=== PATIENT | female | born 1960 | race Caucasian/White ===

== ENCOUNTER 2022-12-18 06:18 | Emergency (ER) | payer OTHER, MEDICARE, SELFPAY ==
[2022-12-18] VITALS (23 sets, daily range): BP systolic 93–122; BP diastolic 52–76; PULSE 51–67; RESP 13–30; TEMP 37.2; O2SAT 92–98; BMI 39.8
--- NOTE | 2022-12-18 06:31 | DI.RAD.S_ITS ---
PROCEDURE: XR CHEST 1V INDICATIONS: n/v/d, LLQ pain, syncope, vo TECHNIQUE: One view of the chest was acquired. COMPARISON: None. FINDINGS: Surgical changes and devices: None. Lungs and pleura: Lungs are clear. No pleural effusions or pneumothorax. Mediastinum: Mediastinal contours appear normal. Heart size is normal. Bones and chest wall: No suspicious bony lesions. Overlying soft tissues appear unremarkable. IMPRESSION: No evidence acute pulmonary process. Comment: Final report is concordant with preliminary interpretation provided by [facility]. Dictated by: Nigel Villarreal M.D. on 12/18/2022 at 8:23 Approved by: Nigel Villarreal M.D. on 12/18/2022 at 8:24
[2022-12-18] MEDS: MORPHINE 4 MG/ML INJ IV (06:49)
[2022-12-18] MEDS: SODIUM CHLORIDE 0.9% 1,000 ML 150 ML IV (06:49)
--- NOTE | 2022-12-18 06:49 | ED.ABDPAIN ---
HPI - Abdominal Pain General Chief Complaint: Abdominal Pain Stated Complaint: n/v and abd pain Time Seen by Provider: 12/18/22 06:29 Source: patient and EMS Mode of arrival: EMS History of Present Illness HPI narrative: 62-year-old female nonsmoker presents with 4 days of nausea, vomiting, diarrhea and left lower quadrant pain. Her pain is relatively persistent and stays in her left lower quadrant, she denies any obvious radiation of her pain. It seems to be worse when she moves and improves with rest. She is had a poor appetite and has become increasingly fatigued. This morning she was having a bowel movement and upon standing had a syncopal episode. She denies any injury as a consequence of her fall. After which she called EMS for transport. She was given a L of fluid in route. Additionally she has some mild headache. She denies any fever. She denies recent travel, bad food. She does have remote history of complicated diverticulitis resulting in colectomy and prolonged use of TPN. She had her reanastomosis a few years ago. Related Data Previous Rx's Medication Instructions Recorded cephalexin 500 mg capsule 500 mg PO Q6H 7 days #28 caps 12/18/22 ondansetron 4 mg disintegrating 4 mg PO TID-QID PRN nausea and 12/18/22 tablet vomiting #10 tabs Allergies Allergy/AdvReac Type Severity Reaction Status Date / Time No Known Drug Allergies Allergy Verified 12/18/22 10:39 Review of Systems Review of Systems Narrative: GENERAL: See HPI HEENT: Denies sinus pain, ear pain, sore throat, difficulty swallowing, dizziness. RESPIRATORY: Denies dyspnea, cough, wheezing, hemoptysis, sputum. CARDIOVASCULAR: Denies chest pain, palpitations, orthopnea, edema, GASTROINTESTINAL: See HPI : Denies dysuria, frequency, incontinence, hematuria, urinary retention. MUSCULOSKELETAL: denies weakness, joint pain, or bony pain SKIN: Denies rash, skin lesions, or other NEUROLOGIC: See HPI PSYCHIATRIC: No concerning psychosocial issues. 12 point review of systems is negative except for those stated above Patient History Social History (System 12/18/22 @ 10:39 by Marsha Morocho) Smoking Status: Never smoker Smoking Status: Never smoker Substance Use Type: does not use Exam Narrative Exam Narrative: GENERAL: [62] year old patient appears stated age. Well-developed patient, in mild distress. GCS 15 HEAD: Atraumatic. Normocephalic. No contusion, abrasion or evidence of depressed skull fracture EYES: Pupils equal round and reactive. Extraocular motions intact. No scleral icterus. No injection or drainage. ENT: Nose without bleeding, purulent drainage. Throat without erythema, tonsillar hypertrophy or exudate. Airway patent. NECK: Trachea midline. Non tender, no meningeal sign CARDIOVASCULAR: Regular rate and rhythm without murmurs, gallops, or rubs. RESPIRATORY: Clear to auscultation. Breath sounds equal bilaterally. No wheezes, rales, or rhonchi. GASTROINTESTINAL: Abdomen soft, tender in the left lower quadrant EXTREMITIES: No edema or joint tenderness. BACK: Nontender without deformity or crepitance. No flank tenderness. NEURO: AOx3. SKIN: No rash or erythema of visible areas Initial Vital Signs Initial Vital Signs: Vital Signs Temperature 99 F 12/18/22 06:20 Pulse Rate 65 12/18/22 06:20 Respiratory Rate 16 12/18/22 06:20 Blood Pressure 122/65 12/18/22 06:20 Pulse Oximetry 96 12/18/22 06:20 Oxygen Delivery Method Room Air 12/18/22 06:20 Course Orders Ordered: ED Orders 12/18/22 06:30 EKG-12 Lead Stat 12/18/22 06:31 Chest [XR chest 1V] Stat 12/18/22 06:51 BNP [NT-proBNP (BNP-Adult 18+)] Stat COVID19 -Nasal RAPID Stat Complete Blood Count AUTO DIFF Stat Comprehensive Metabolic Panel Stat Lactate (Lactic Acid) Stat Lipase Stat Troponin & CK Cardiac Panel Stat 12/18/22 07:02 CT abdomen pelvis w con Stat 12/18/22 08:13 Urine Culture Stat Urine Microscopic Stat Discontinued Medications Sodium Chloride (Normal Saline 0.9%) 1,000 mls @ 150 mls/hr IV CONT ТАТЬЯНА Last Infusion: 12/18/22 07:18 Dose: 0 mls/hr Documented By: Infusion: 12/18/22 07:15 Dose: 0 mls/hr Documented By: Infusion: 12/18/22 07:11 Dose: 0 mls/hr Documented By: Admin: 12/18/22 06:49 Dose: 150 mls/hr Documented By: SB Acetaminophen (Ofirmev) 1,000 mg in 100 mls @ 400 mls/hr IV NOW ONE Stop: 12/18/22 07:15 Last Infusion: 12/18/22 07:46 Dose: 0 mls/hr Documented By: Admin: 12/18/22 07:24 Dose: 400 mls/hr Documented By: VINCE Sodium Chloride (Normal Saline 0.9%) 1,000 mls @ 1,000 mls/hr IV BOLUS ONE Stop: 12/18/22 08:11 Last Infusion: 12/18/22 07:56 Dose: 0 mls/hr Documented By: Admin: 12/18/22 07:13 Dose: 1,000 mls/hr Documented By: COLTON Ceftriaxone Sodium 2,000 mg/ (Sodium Chloride) 100 mls @ 200 mls/hr IV NOW ONE Stop: 12/18/22 09:07 Last Infusion: 12/18/22 09:53 Dose: 0 mls/hr Documented By: Admin: 12/18/22 09:17 Dose: 200 mls/hr Documented By: VINCE Sodium Chloride (Normal Saline 0.9%) 1,000 mls @ 1,000 mls/hr IV BOLUS ONE Stop: 12/18/22 11:54 Last Infusion: 12/18/22 12:38 Dose: 0 mls/hr Documented By: Admin: 12/18/22 11:05 Dose: 1,000 mls/hr Documented By: VINCE Ketorolac Tromethamine (Ketorolac 30 Mg/Ml Vial) 15 mg IV NOW ONE Stop: 12/18/22 11:37 Last Admin: 12/18/22 11:40 Dose: 15 mg Documented By: VINCE Morphine Sulfate (Morphine 4 Mg/Ml Inj) 4 mg IV NOW ONE Stop: 12/18/22 06:30 Last Admin: 12/18/22 06:49 Dose: 4 mg Documented By: COLTON Vital Signs Vital signs: Vital Signs - 8 hr 12/18/22 06:20 12/18/22 06:57 12/18/22 07:00 Temperature 99 F Pulse Rate 65 63 Pulse Rate [Orthostatic Lying] Pulse Rate [Orthostatic Sitting] Pulse Rate [Orthostatic Standing] Respiratory Rate 16 Blood Pressure 122/65 109/58 L Blood Pressure [Orthostatic Lying] Blood Pressure [Orthostatic Sitting] Blood Pressure [Orthostatic Standing] Pulse Oximetry 96 94 Oxygen Delivery Method Room Air 12/18/22 07:00 12/18/22 07:30 12/18/22 07:30 Temperature Pulse Rate 62 56 L Pulse Rate [Orthostatic Lying] Pulse Rate [Orthostatic Sitting] Pulse Rate [Orthostatic Standing] Respiratory Rate 15 Blood Pressure 108/63 Blood Pressure [Orthostatic Lying] Blood Pressure [Orthostatic Sitting] Blood Pressure [Orthostatic Standing] Pulse Oximetry 94 93 Oxygen Delivery Method 12/18/22 08:11 12/18/22 08:12 12/18/22 08:12 Temperature Pulse Rate 59 L 58 L Pulse Rate [Orthostatic Lying] Pulse Rate [Orthostatic Sitting] Pulse Rate [Orthostatic Standing] Respiratory Rate 30 H 21 Blood Pressure 94/76 Blood Pressure [Orthostatic Lying] Blood Pressure [Orthostatic Sitting] Blood Pressure [Orthostatic Standing] Pulse Oximetry 95 96 Oxygen Delivery Method 12/18/22 08:30 12/18/22 08:31 12/18/22 08:31 Temperature Pulse Rate 53 L 53 L Pulse Rate [Orthostatic Lying] Pulse Rate [Orthostatic Sitting] Pulse Rate [Orthostatic Standing] Respiratory Rate 16 15 Blood Pressure 93/52 L Blood Pressure [Orthostatic Lying] Blood Pressure [Orthostatic Sitting] Blood Pressure [Orthostatic Standing] Pulse Oximetry 94 92 Oxygen Delivery Method 12/18/22 09:00 12/18/22 09:02 12/18/22 09:07 Temperature Pulse Rate 59 L 55 L Pulse Rate [Orthostatic Lying] Pulse Rate [Orthostatic Sitting] Pulse Rate [Orthostatic Standing] Respiratory Rate 24 20 Blood Pressure 105/64 Blood Pressure [Orthostatic Lying] Blood Pressure [Orthostatic Sitting] Blood Pressure [Orthostatic Standing] Pulse Oximetry 94 92 Oxygen Delivery Method 12/18/22 09:07 12/18/22 10:28 12/18/22 09:30 Temperature Pulse Rate 54 L Pulse Rate [Orthostatic Lying] 59 L Pulse Rate [Orthostatic Sitting] 53 L Pulse Rate [Orthostatic Standing] 66 Respiratory Rate 21 Blood Pressure 112/67 Blood Pressure [Orthostatic Lying] 109/63 Blood Pressure [Orthostatic Sitting] 94/60 Blood Pressure [Orthostatic Standing] 98/66 Pulse Oximetry 94 Oxygen Delivery Method 12/18/22 10:00 12/18/22 10:00 12/18/22 10:22 Temperature Pulse Rate 51 L Pulse Rate [Orthostatic Lying] Pulse Rate [Orthostatic Sitting] Pulse Rate [Orthostatic Standing] Respiratory Rate 13 Blood Pressure 105/63 109/63 Blood Pressure [Orthostatic Lying] Blood Pressure [Orthostatic Sitting] Blood Pressure [Orthostatic Standing] Pulse Oximetry 92 Oxygen Delivery Method 12/18/22 10:22 12/18/22 10:24 12/18/22 10:24 Temperature Pulse Rate 55 L 53 L Pulse Rate [Orthostatic Lying] Pulse Rate [Orthostatic Sitting] Pulse Rate [Orthostatic Standing] Respiratory Rate 15 14 Blood Pressure 94/60 Blood Pressure [Orthostatic Lying] Blood Pressure [Orthostatic Sitting] Blood Pressure [Orthostatic Standing] Pulse Oximetry 93 95 Oxygen Delivery Method 12/18/22 10:26 12/18/22 10:26 12/18/22 10:30 Temperature Pulse Rate 67 53 L Pulse Rate [Orthostatic Lying] Pulse Rate [Orthostatic Sitting] Pulse Rate [Orthostatic Standing] Respiratory Rate 29 H 14 Blood Pressure 98/66 Blood Pressure [Orthostatic Lying] Blood Pressure [Orthostatic Sitting] Blood Pressure [Orthostatic Standing] Pulse Oximetry 93 94 Oxygen Delivery Method 12/18/22 10:40 12/18/22 10:40 12/18/22 11:00 Temperature Pulse Rate 59 L Pulse Rate [Orthostatic Lying] Pulse Rate [Orthostatic Sitting] Pulse Rate [Orthostatic Standing] Respiratory Rate 18 Blood Pressure 98/65 97/59 L Blood Pressure [Orthostatic Lying] Blood Pressure [Orthostatic Sitting] Blood Pressure [Orthostatic Standing] Pulse Oximetry 96 Oxygen Delivery Method 12/18/22 11:00 12/18/22 11:30 12/18/22 11:30 Temperature Pulse Rate 51 L 53 L Pulse Rate [Orthostatic Lying] Pulse Rate [Orthostatic Sitting] Pulse Rate [Orthostatic Standing] Respiratory Rate 18 17 Blood Pressure 108/55 L Blood Pressure [Orthostatic Lying] Blood Pressure [Orthostatic Sitting] Blood Pressure [Orthostatic Standing] Pulse Oximetry 96 97 Oxygen Delivery Method 12/18/22 12:00 12/18/22 12:00 12/18/22 12:30 Temperature Pulse Rate 58 L Pulse Rate [Orthostatic Lying] Pulse Rate [Orthostatic Sitting] Pulse Rate [Orthostatic Standing] Respiratory Rate 21 Blood Pressure 110/65 103/58 L Blood Pressure [Orthostatic Lying] Blood Pressure [Orthostatic Sitting] Blood Pressure [Orthostatic Standing] Pulse Oximetry 98 Oxygen Delivery Method 12/18/22 12:30 Temperature Pulse Rate 55 L Pulse Rate [Orthostatic Lying] Pulse Rate [Orthostatic Sitting] Pulse Rate [Orthostatic Standing] Respiratory Rate 18 Blood Pressure Blood Pressure [Orthostatic Lying] Blood Pressure [Orthostatic Sitting] Blood Pressure [Orthostatic Standing] Pulse Oximetry 97 Oxygen Delivery Method MDM - Abdominal Pain Lab Data 12/18/22 06:51 12/18/22 06:51 Labs: Lab Results 12/18/22 12/18/22 12/18/22 Range/Units 06:51 06:51 06:51 WBC 6.9 (4.5-11.0) X10^3/uL RBC 4.72 (4.0-5.2) X10^6/uL Hgb 13.2 (12.0-16.0) g/dL Hct 38.6 (36-46) % MCV 81.8 (80-100) fL MCH 27.9 (26-34) PG MCHC 34.1 (30-36) % RDW 14.6 (11.6-14.8) % Plt Count 104 L (150-400) X10^3/uL Neut % (Auto) 84.9 H (50-75) % Lymph % (Auto) 4.4 L (25-40) % [place] % (Auto) 10.6 (3-14) % Eos % (Auto) 0.0 L (2-4) % Baso % (Auto) 0.1 (0-2) % Neut # (Auto) 5900 (9466-9242) /uL Lymph # (Auto) 300 L (5282-9786) /uL [place] # (Auto) 700 (0-900) /uL Eos # (Auto) 0 (0-450) /uL Baso # (Auto) 0 (0-100) /uL Sodium 131 L (137-145) mmol/L Potassium 3.6 (3.4-5.1) mmol/L Chloride 100 (98-107) mmol/L Carbon Dioxide 26 (22-32) mmol/L BUN 15 (7-17) mg/dL Creatinine 0.67 (0.52-1.04) mg/dL Estimated GFR > 60 (>60) mL/min BUN/Creatinine Ratio 22.4 H (6-22) Glucose 132 H (80-110) mg/dL Lactate (0.7-2.1) mmol/L Calcium 7.5 L (8.4-10.2) mg/dL Total Bilirubin 0.9 (0.2-1.3) mg/dL AST 29 (14-36) IU/L ALT 24 (<35) IU/L Alkaline Phosphatase 107 (38-126) U/L Total Creatine Kinase 21 L (30-135) U/L Troponin I < 0.012 (0.01-0.034) ng/mL NT-Pro-B Natriuret Pep 964 H (<125) pg/mL Total Protein 6.4 (6.3-8.2) g/dL Albumin 3.3 L (3.5-5.0) g/dL Globulin 3.1 (1.7-4.1) g/dL Albumin/Globulin Ratio 1.1 (1.0-2.8) Lipase 75 (23-300) U/L Urine RBC (0-5/HPF) Urine WBC (0-5/HPF) Ur Squamous Epith Cells (0-5/HPF) Urine Bacteria (None) Ur Culture Indicated? SARS-CoV-2 (PCR) (Negative) 12/18/22 12/18/22 12/18/22 Range/Units 06:51 06:51 08:13 WBC (4.5-11.0) X10^3/uL RBC (4.0-5.2) X10^6/uL Hgb (12.0-16.0) g/dL Hct (36-46) % MCV (80-100) fL MCH (26-34) PG MCHC (30-36) % RDW (11.6-14.8) % Plt Count (150-400) X10^3/uL Neut % (Auto) (50-75) % Lymph % (Auto) (25-40) % [place] % (Auto) (3-14) % Eos % (Auto) (2-4) % Baso % (Auto) (0-2) % Neut # (Auto) (7536-8292) /uL Lymph # (Auto) (0617-8898) /uL [place] # (Auto) (0-900) /uL Eos # (Auto) (0-450) /uL Baso # (Auto) (0-100) /uL Sodium (137-145) mmol/L Potassium (3.4-5.1) mmol/L Chloride (98-107) mmol/L Carbon Dioxide (22-32) mmol/L BUN (7-17) mg/dL Creatinine (0.52-1.04) mg/dL Estimated GFR (>60) mL/min BUN/Creatinine Ratio (6-22) Glucose (80-110) mg/dL Lactate 0.7 (0.7-2.1) mmol/L Calcium (8.4-10.2) mg/dL Total Bilirubin (0.2-1.3) mg/dL AST (14-36) IU/L ALT (<35) IU/L Alkaline Phosphatase (38-126) U/L Total Creatine Kinase (30-135) U/L Troponin I (0.01-0.034) ng/mL NT-Pro-B Natriuret Pep (<125) pg/mL Total Protein (6.3-8.2) g/dL Albumin (3.5-5.0) g/dL Globulin (1.7-4.1) g/dL Albumin/Globulin Ratio (1.0-2.8) Lipase (23-300) U/L Urine RBC 5-10/hpf H (0-5/HPF) Urine WBC 10-30/hpf H (0-5/HPF) Ur Squamous Epith Cells 0-1 /hpf (0-5/HPF) Urine Bacteria Many (>30) H (None) Ur Culture Indicated? Specimen cultured SARS-CoV-2 (PCR) Negative (Negative) Point of care testing: Urine Dip Bedside Urine Glucose Negative Bedside Urine Bilirubin - Negative Bedside Urine Ketone +/- 5 Urine Specific [place] 1.010 Bedside Urine Occult Blood ++ Bedside Urine pH 6.0 Bedside Urine Protein + 30 Bedside Urine Urobilinogen - Negative Bedside Urine Nitrite + Positive Bedside Urine Leukocytes +/- 15 Esterase MDM Narrative Medical decision making narrative: CC: 62-year-old female with nausea, vomiting, diarrhea abdominal pain Complicating co-morbidities: Prior colectomy, age Data collected from: Patient Medical records reviewed: Prior notes reviewed in our EMR Differential considered, but not limited to: Infectious diarrhea versus colitis versus appendicitis versus anastomotic leak versus COVID versus other Exam documented above, pertinent findings include: Alert and oriented, GCS 15, no meningeal signs, heart rate regular and lungs clear, abdomen soft but tender in the left lower quadrant with intact bowel sounds Lab Test results independently reviewed as above. Pertinent findings: No leukocytosis or left shift, no evidence of anemia, electrolytes, renal function, LFTs and lactate all within normal. Independently reviewed EKG as above Imaging studies independently reviewed: Abdomen and pelvis CT notes bilateral perinephric fat stranding, diverticulosis without evidence of acute diverticulitis Treatments: IV fluids, Rocephin, Toradol, Tylenol Re-evaluations: Headache resolved, vital signs stabilize, tolerating orals, pain controlled Discussion: Patient with a few days of nausea, vomiting and diarrhea with development of generalized headache had syncopal episode standing from toilet today. These findings are most consistent with orthostatic syncope, plus or minus increased vagal tone from using the restroom. Cardiac cause considered but thought unlikely given her history and exam as well as cardiac monitoring and EKG. Urine and imaging consistent with pyelonephritis. She responds well to fluids, heart rate has improved, no evidence of any other intra-abdominal abnormality that would require specific intervention, specifically no bowel obstruction, anastomotic leak, appendicitis or other. Headache improved after above-stated therapies. Disposition: see below, along with detailed discharge instructions that have been reviewed with patient as well as indications for ED re-evaluation and additional outpatient follow up Discharge Plan Departure Patient Disposition: Home Clinical Impression: Pyelonephritis Instructions: DI for Kidney Infection Activity Restrictions/Additional Instructions: *You have been diagnosed with [ left-sided kidney infection. As we discussed, your labs are very reassuring and the CT scan shows no problems with your anastomosis, no kidney stone, no appendicitis or other abnormality *What to do: *Please continue to take your regular medications as directed. [ x] New medication prescriptions sent to your pharmacy: [[facility] ] [ ] New medication written as a paper prescription [ ] No new medications given *Please follow up with your primary care provider in 2-3 days, call for an appointment. Let them know you were seen in the Emergency Department and that we ask that you be seen in follow up. We will electronically transmit a record of today's note if your PCP is in our system *If you do not have a primary care provider please contact the [facility] Resource line at [phone]. They will ask some questions about your medical history and help get you set up with a doctor in the community. *Return to Emergency Department if you should have any new, worsening or concerning symptoms, such as [fever greater than 101 F, shaking chills, worsening pain, persistent vomiting or other bothersome symptoms] Prescriptions: New cephalexin 500 mg capsule 500 mg PO Q6H 7 Days Qty: 28 0RF ondansetron 4 mg tablet,disintegrating 4 mg PO TID-QID PRN (Reason: nausea and vomiting) Qty: 10 0RF Stand Alone Forms: Patient Portal/API
[2022-12-18 07:02] LABS: Add Manual Diff / Slide Review NO; Basophils Absolute Auto 0 /uL (0-100); Basophils Percent Auto 0.1 % (0-2); Eosinophils Absolute Auto 0 /uL (0-450); Hematocrit 38.6 % (36-46); Hemoglobin 13.2 g/dL (12.0-16.0); Lymphocytes Absolute Auto 300 /uL (1100-4500); Lymphocytes Percent Auto 4.4 % (25-40); Mean Corpuscular HGB Conc 34.1 % (30-36); Mean Corpuscular Hemoglobin 27.9 PG (26-34); Mean Corpuscular Volume 81.8 fL (80-100); Monocytes Absolute Auto 700 /uL (0-900); Monocytes Percent Auto 10.6 % (3-14); Neutrophils Absolute Auto 5900 /uL (1500-7000); Neutrophils Percent Auto 84.9 % (50-75); Platelet Count 104 X10^3/uL (150-400); Red Blood Cell Count 4.72 X10^6/uL (4.0-5.2); Red Cell Distribution Width 14.6 % (11.6-14.8); White Blood Cell Count 6.9 X10^3/uL (4.5-11.0)
--- NOTE | 2022-12-18 07:02 | DI.CT.S_ITS ---
PROCEDURE: CT ABDOMEN PELVIS W CON INDICATIONS: LLQ pain, hx colectomy TECHNIQUE: After the administration of intravenous contrast, axial sections acquired from the lung bases to the pubic symphysis. Coronal and sagittal reformats were performed. For radiation dose reduction, the following was used: automated exposure control, adjustment of mA and/or kV according to patient size. COMPARISON: None. FINDINGS: Image quality: Excellent. Lung bases: Minor bibasilar atelectasis. Heart: Normal size heart. No pericardial effusion. Mild pericardial thickening. Tiny hiatal hernia. ABDOMEN: Liver: Mildly enlarged liver. No visible mass. Gallbladder: Surgically absent. Biliary ducts: Mild biliary dilatation, appropriate post cholecystectomy. Pancreas: Normal. Spleen: Borderline enlarged. Adrenal Glands: No nodules. Kidneys and Ureters: Mild, nonspecific bilateral perinephric fat stranding, left slightly worse than right. Symmetric enhancement. No hydronephrosis, nephrolithiasis, or hydroureter. Stomach and Bowel: Decompressed stomach with possible partial gastrectomy change. Surgical bowel anastomosis in the right lower quadrant and in the colorectal region. Occasional residual sigmoid diverticulosis. No acute diverticulitis. Peritoneum: No abnormal intraperitoneal fluid. No free air. Ventral Wall: No hernias. Abdominal Nodes: Borderline enlarged upper periaortic lymph nodes which maintain fatty nadege. No bulky adenopathy. No mesenteric mass. Vessels: Aorta and inferior vena cava are normal in size. PELVIS: Pelvic Organs: Uterus is absent. Ovarian tissue is not seen. Bladder: Normal. Pelvic Nodes: No adenopathy. Miscellaneous: Surgical changes in the left suprapubic region. Bones: Unremarkable. IMPRESSION: 1. Mild bilateral perinephric fat stranding, left worse than right. No change in parenchymal enhancement, however infection or inflammation should be considered. Correlate with UA. 2. Sigmoid diverticulosis without acute diverticulitis. 3. Borderline hepatosplenomegaly, chronic. Dictated by: Miriam Cox M.D. on 12/18/2022 at 8:43 Approved by: Miriam Cox M.D. on 12/18/2022 at 8:54
[2022-12-18 07:08] LABS: Creatine Kinase 21 U/L (30-135); Lactate (Lactic Acid) 0.7 mmol/L (0.7-2.1)
[2022-12-18 07:10] LABS: Alanine Aminotransferase 24 IU/L (<35); Albumin 3.3 g/dL (3.5-5.0); Albumin Globulin Ratio 1.1 (1.0-2.8); Alkaline Phosphatase 107 U/L (38-126); Aspartate Aminotransferase 29 IU/L (14-36); BUN Creatinine Ratio 22.4 (6-22); Bilirubin Total 0.9 mg/dL (0.2-1.3); Blood Urea Nitrogen 15 mg/dL (7-17); Calcium 7.5 mg/dL (8.4-10.2); Carbon Dioxide 26 mmol/L (22-32); Chloride 100 mmol/L (98-107); Estimated Glomerular Filt Rate > 60 mL/min (>60); Globulin 3.1 g/dL (1.7-4.1); Glucose 132 mg/dL (80-110); HEMOLYSIS < 15 (0-50); Lipase 75 U/L (23-300); Potassium 3.6 mmol/L (3.4-5.1); Sodium 131 mmol/L (137-145); Total Protein 6.4 g/dL (6.3-8.2)
[2022-12-18 07:12] LABS: COVID19 -Nasal RAPID Negative (Negative)
[2022-12-18] MEDS: SODIUM CHLORIDE 0.9% 1,000 ML 1000 ML IV ×2 (07:13→11:05)
[2022-12-18 07:21] LABS: NT-proBNP (BNP-Adult 18+) 964 pg/mL (<125); Troponin I < 0.012 ng/mL (0.01-0.034)
[2022-12-18] MEDS: ACETAMINOPHEN IV 1,000 MG/100 ML VIAL 400 MG IV (07:24)
[2022-12-18 08:38] LABS: Bacteria Urine Many (>30); Culture Indicated Urine Specimen Cultured; RBC Urine 5-10/HPF (0-5/HPF); Squamous Epithelial Cell Urine 0-1 /HPF (0-5/HPF); WBC Urine 10-30/HPF (0-5/HPF)
[2022-12-18] MEDS: cefTRIAXone 2,000 MG in SODIUM CHLORIDE 0.9% 100 ML 200 MG IV (09:17)
[2022-12-18] MEDS: KETOROLAC 30 MG/ML VIAL 15 MG IV (11:40)
== END 2022-12-18 12:53 | disposition home or self-care (01) ==
PROVIDERS: Emergency Medicine; Emergency Provider Emergency Medicine
DX: N12 Tubulo-interstitial nephritis, not specified as acute or chronic (principal); R51.9 Headache, unspecified; Z20.822 Contact with and (suspected) exposure to COVID-19; R03.1 Nonspecific low blood-pressure reading
CPT/HCPCS: 36415; 71045; 74177; 80053; 81003; 81015; 82550; 83605; 83690; 83880; 84484; 85025; 87077; 87086; 87186; 87635; 93005; 93010; 96365; 96367; 96375; 99284; C9803; J0131; J0696; J1885; J2270; Q9967

== ENCOUNTER 2022-12-22 14:07 | Inpatient (IN) | payer OTHER, MEDICARE, SELFPAY ==
[2022-12-22] VITALS (11 sets, daily range): BP systolic 143–190; BP diastolic 69–102; PULSE 47–69; RESP 13–20; TEMP 36.3–36.6; O2SAT 96–100; BMI 39.9
--- NOTE | 2022-12-22 14:17 | ED.GENADULT ---
HPI - General Adult General Chief complaint: Urogenital-Female Stated complaint: DR sent for IV anibotics Time Seen by Provider: 12/22/22 14:10 Source: patient Mode of arrival: Ambulatory History of Present Illness HPI narrative: Patient is a 62-year-old female. Has a history of rheumatoid arthritis. Is on Enbrel for this. Was seen here in the emergency department beginning of the week. Was diagnosed with pyelonephritis. Was sent home on Keflex. Since that time a urine culture has resulted with greater than 100,000 colony-forming units of E coli that was pansensitive. She states since she was discharged home she is still having fevers. Still having discomfort. Still having nausea and vomiting. Generally not feeling very well. She had a follow-up with her primary doctor today who referred her back to the emergency department she may need IV antibiotics. Patient states she has had issues in the past with treating infections that she is had requiring longer courses of antibiotics because her underlying rheumatoid arthritis and immunosuppression. Related Data Previous Rx's Medication Instructions Recorded cephalexin 500 mg capsule 500 mg PO Q6H 7 days #28 caps 12/18/22 ondansetron 4 mg disintegrating 4 mg PO TID-QID PRN nausea and 12/18/22 tablet vomiting #10 tabs Allergies Allergy/AdvReac Type Severity Reaction Status Date / Time No Known Drug Allergies Allergy Verified 12/22/22 14:17 Review of Systems Constitutional Constitutional: Reports system reviewed and no additional complaints, except as documented Gastrointestinal Gastrointestinal: Reports system reviewed and no additional complaints, except as documented Genitourinary Genitourinary: Reports system reviewed and no additional complaints, except as documented Integumentary/Breasts Skin/Breast: Reports system reviewed and no additional complaints, except as documented Neurologic Neurologic: Reports system reviewed and no additional complaints, except as documented Patient History Social History Smoking Status: Never smoker Smoking Status: Never smoker Substance Use Type: does not use Exam Initial Vital Signs Initial Vital Signs: Vital Signs Pulse Rate 58 L 12/22/22 14:11 Blood Pressure 190/102 H 12/22/22 14:11 Pulse Oximetry 97 12/22/22 14:11 Const General: cooperative and comfortable HENMT Head: normal to inspection and normocephalic Resp Effort & Inspection: normal respiratory effort Auscultation: clear to auscultation bilaterally Cardio Rate: regular rate Rhythm: regular rhythm GI Inspection: non-distended Back/Spine/Pelvis Back: CVA tenderness (Bilateral) Skin General: no rashes or lesions noted Neuro General: patient alert, patient awake and moves all extremities Course Orders Ordered: ED Orders 12/22/22 14:14 Urinalysis and Microscopic Stat Urine Culture Stat 12/22/22 14:30 Blood Culture Stat Complete Blood Count AUTO DIFF Stat Comprehensive Metabolic Panel Stat Lactate (Lactic Acid) Stat Lipase Stat Procalcitonin Stat Sodium Chloride (Normal Saline 0.9%) 1,000 mls @ 1,000 mls/hr IV BOLUS ONE Stop: 12/22/22 15:13 Last Admin: 12/22/22 14:54 Dose: 1,000 mls/hr Documented By: VINCE Discontinued Medications Piperacillin Sod/Tazobactam (Sod 4.5 gm/ Sodium Chloride) 100 mls @ 200 mls/hr IV NOW ONE Stop: 12/22/22 14:22 Last Admin: 12/22/22 14:55 Dose: 200 mls/hr Documented By: VINCE Vital Signs Vital signs: Vital Signs - 8 hr 12/22/22 14:13 12/22/22 14:11 12/22/22 14:11 Temperature 97.4 F L Pulse Rate 60 58 L Respiratory Rate 18 Blood Pressure 190/102 H 190/102 H Pulse Oximetry 98 97 Oxygen Delivery Method Room Air Medical Decision Making Medical Records Medical records reviewed: Yes I reviewed the patient's medical records. Lab Data 12/22/22 14:30 12/22/22 14:30 [facility] Narrative Medical decision making narrative: The Keflex that the patient was sent home with should treated the infection as it is a pansensitive E coli however her symptoms are not improving. She is afebrile not tachycardic but does have CVA tenderness in his still having fevers and also vomiting. Repeat labs and cultures were obtained today. I did discuss the case with Dr. Lora hospitalist on-call who will admit the patient for further evaluation and IV antibiotics. Discussed the need for admission with the patient. She expressed understanding and agreement. Discharge Plan Departure Patient Disposition: Admitted As Inpatient Clinical Impression: Pyelonephritis Admit Date/Time: 12/22/22 14:25 Admit Provider: Dick Lora
[2022-12-22 14:41] LABS: Add Manual Diff / Slide Review NO; Basophils Absolute Auto 0 /uL (0-100); Basophils Percent Auto 0.6 % (0-2); Eosinophils Absolute Auto 100 /uL (0-450); Eosinophils Percent Auto 1.7 % (2-4); Hematocrit 36.4 % (36-46); Hemoglobin 12.2 g/dL (12.0-16.0); Lymphocytes Absolute Auto 1100 /uL (1100-4500); Lymphocytes Percent Auto 24.3 % (25-40); Mean Corpuscular HGB Conc 33.5 % (30-36); Mean Corpuscular Hemoglobin 27.4 PG (26-34); Mean Corpuscular Volume 81.8 fL (80-100); Monocytes Absolute Auto 500 /uL (0-900); Monocytes Percent Auto 11.2 % (3-14); Neutrophils Absolute Auto 2900 /uL (1500-7000); Neutrophils Percent Auto 62.2 % (50-75); Platelet Count 257 X10^3/uL (150-400); Red Blood Cell Count 4.45 X10^6/uL (4.0-5.2); Red Cell Distribution Width 14.5 % (11.6-14.8); White Blood Cell Count 4.7 X10^3/uL (4.5-11.0)
--- NOTE | 2022-12-22 14:44 | PM.HP.1 ---
History of Present Illness History of Present Illness Date Patient Seen: 12/22/22 Time Patient Seen: 14:45 Chief complaint: DR sent for IV anibotics Narrative: Pt is 62 yo female with h/o RA presents to ED due to fevers, vomiting, headache, back and abd pain. Pt was seen in ED on 12/18 for similar complaints and found to have UTI. She was discharged on cephalexin which she has been taking. urine cx pos for frazier-sensitive E.coli. Has persistnet low grade temp, chills, nausea with occ vomiting, left lower abd and flank pain. Also having headaches which are not common for her. Only med is Enbrel which last took 2 weeks ago. In ED, afebrile, initial BP 190/102, repeat BP 160/62 without intervention, HR [address] wi contraast showed mild inflammatory stranding L>R kidneys, mild left side diverticulosis without diverticulitis. She has h/o complicated divertic 3 years ago which required sig resection, bladder patch and prolonged abx. [facility] Medical History (Updated 12/22/22 @ 15:22 by Dick Lora MD) Rheumatoid arthritis Social History Smoking Status: Never smoker Meds Home Medications and Allergies Home Medications Medication Instructions Recorded Confirmed Type cephalexin 500 mg capsule 500 mg PO Q6H 7 days #28 caps 12/18/22 Rx ondansetron 4 mg disintegrating 4 mg PO TID-QID PRN nausea and 12/18/22 Rx tablet vomiting #10 tabs Allergies Allergy/AdvReac Type Severity Reaction Status Date / Time No Known Drug Allergies Allergy Verified 12/22/22 14:17 Review of Systems Review of Systems Narrative: otherwise neg Exam Vital Signs (past 8 hours): - 12/22/22 14:13 Temperature 97.4 F L Pulse Rate 60 Respiratory Rate 18 Blood Pressure 190/102 H Pulse Oximetry 98 Oxygen Delivery Method Room Air Oxygen Delivery Method Room Air Narrative Exam Narrative: Gen: alert, WD/WN, NAD Neck: no mass/en;larged LN Lungs: clear CV: regular, no murmur Abd: soft, mild tender LLQ and left flank, no palpable liver/spleen edge Ext: no edema Neuro: nl affect and speech Objective Labs 12/22/22 14:30 12/22/22 14:30 Labs: Laboratory Results - last 24 hr 12/22/22 14:30 WBC 4.7 RBC 4.45 Hgb 12.2 Hct 36.4 MCV 81.8 MCH 27.4 MCHC 33.5 RDW 14.5 Plt Count 257 Neut % (Auto) 62.2 Lymph % (Auto) 24.3 L [place] % (Auto) 11.2 Eos % (Auto) 1.7 L Baso % (Auto) 0.6 Neut # (Auto) 2900 Lymph # (Auto) 1100 [place] # (Auto) 500 Eos # (Auto) 100 Baso # (Auto) 0 Assessment & Plan Assessment & Plan narrative: 1. Acute bilateral pyelonephritis with failure of outpatient oral abx -likely mixed infection -urine cx from ER visit 12/18 pansensitive E.coli but having persistent fever, pain on cephalexin -Ct 12/18 c/w bilat pyelo, neg for diverticulitis -CBC, procalc nl -treat with Zosyn to coever aerobic and anaerobic bacteria -NS 100 cc/hr -tylenol/ibu prn -zofran prn -repeat CT wi IV and oral contrast if not clinically responding after 48 h on Zosyn 2. Acute hypertension -likely pain related, repeat BP imroving, cont monitoring 3. Acute headache -don't think hypertensive, cont monitoring -may need further eval with CT, LP if persists 4. RA -hold Enbrel 5. Severe obesity , BMI 40 DVT prevention: Lovenox, SCDs Surrogate decision maker: spouse Code status: Full
[2022-12-22 14:50] LABS: Alanine Aminotransferase 34 IU/L (<35); Albumin 3.4 g/dL (3.5-5.0); Albumin Globulin Ratio 1.1 (1.0-2.8); Alkaline Phosphatase 172 U/L (38-126); Aspartate Aminotransferase 39 IU/L (14-36); BUN Creatinine Ratio 18.3 (6-22); Bilirubin Total 0.3 mg/dL (0.2-1.3); Blood Urea Nitrogen 11 mg/dL (7-17); Calcium 8.4 mg/dL (8.4-10.2); Carbon Dioxide 30 mmol/L (22-32); Chloride 100 mmol/L (98-107); Estimated Glomerular Filt Rate > 60 mL/min (>60); Globulin 3.1 g/dL (1.7-4.1); Glucose 145 mg/dL (80-110); HEMOLYSIS < 15 (0-50); Lactate (Lactic Acid) 1.6 mmol/L (0.7-2.1); Lipase 124 U/L (23-300); Potassium 3.6 mmol/L (3.4-5.1); Sodium 136 mmol/L (137-145); Total Protein 6.5 g/dL (6.3-8.2)
[2022-12-22] MEDS: SODIUM CHLORIDE 0.9% 1,000 ML 1000 ML IV (14:54)
[2022-12-22] MEDS: PIPERACILLIN/TAZO 4.5 GM in SODIUM CHLORIDE 0.9% 100 ML IV (14:55)
[2022-12-22 15:06] LABS: Procalcitonin 0.32 ng/mL (<0.5)
[2022-12-22] MEDS: SODIUM CHLORIDE 0.9% 1,000 ML 100 ML IV (15:45)
[2022-12-22] MEDS: ACETAMINOPHEN 325 MG TABLET 650 MG PO ×2 (16:12→22:45)
[2022-12-22 16:14] LABS: Appearance Urine UA CLEAR; Bilirubin Urine UA NEGATIVE (NEGATIVE); Color Urine UA YELLOW; Glucose Urine UA NEGATIVE (Negative); Ketones Urine UA NEGATIVE (NEGATIVE); Leukocyte Esterase Urine UA TRACE (NEGATIVE); Nitrite Urine UA NEGATIVE (Negative); Occult Blood Urine UA TRACE-INTACT (Negative); Protein Urine UA NEGATIVE (Negative); Specific Gravity Urine UA <=1.005 (1.000-1.035); Urobilinogen Urine UA 0.2 E.U./dL (0.2)
[2022-12-22 16:39] LABS: Bacteria Urine None Seen; Culture Indicated Urine Specimen Cultured; RBC Urine 0-1/HPF (0-5/HPF); Squamous Epithelial Cell Urine None Seen (0-5/HPF); WBC Urine 5-10/HPF (0-5/HPF)
[2022-12-22] MEDS: PIPERACILLIN/TAZO 3.375 GM in SODIUM CHLORIDE 0.9% 100 ML IV (22:44)
[2022-12-23] MEDS: IBUPROFEN 600 MG TABLET PO (03:01)
[2022-12-23 04:34] VITALS: BP 145/76; PULSE 54; RESP 15; TEMP 36.2; O2SAT 94
[2022-12-23 05:32] LABS: Add Manual Diff / Slide Review NO; Basophils Absolute Auto 0 /uL (0-100); Basophils Percent Auto 0.4 % (0-2); Eosinophils Absolute Auto 100 /uL (0-450); Eosinophils Percent Auto 2.4 % (2-4); Hematocrit 32.4 % (36-46); Hemoglobin 11.1 g/dL (12.0-16.0); Lymphocytes Absolute Auto 1100 /uL (1100-4500); Lymphocytes Percent Auto 27.2 % (25-40); Mean Corpuscular HGB Conc 34.3 % (30-36); Mean Corpuscular Hemoglobin 27.7 PG (26-34); Monocytes Absolute Auto 500 /uL (0-900); Monocytes Percent Auto 11.3 % (3-14); Neutrophils Absolute Auto 2400 /uL (1500-7000); Neutrophils Percent Auto 58.7 % (50-75); Platelet Count 225 X10^3/uL (150-400); Red Cell Distribution Width 14.4 % (11.6-14.8); White Blood Cell Count 4.2 X10^3/uL (4.5-11.0)
[2022-12-23 05:44] LABS: Alanine Aminotransferase 37 IU/L (<35); Albumin 2.8 g/dL (3.5-5.0); Alkaline Phosphatase 149 U/L (38-126); Aspartate Aminotransferase 50 IU/L (14-36); Bilirubin Total 0.5 mg/dL (0.2-1.3); Blood Urea Nitrogen 9 mg/dL (7-17); Calcium 7.8 mg/dL (8.4-10.2); Carbon Dioxide 32 mmol/L (22-32); Chloride 104 mmol/L (98-107); Estimated Glomerular Filt Rate > 60 mL/min (>60); Globulin 2.9 g/dL (1.7-4.1); Glucose 78 mg/dL (80-110); HEMOLYSIS < 15 (0-50); Potassium 3.6 mmol/L (3.4-5.1); Sodium 137 mmol/L (137-145); Total Protein 5.7 g/dL (6.3-8.2)
[2022-12-23] MEDS: PIPERACILLIN/TAZO 3.375 GM in SODIUM CHLORIDE 0.9% 100 ML IV ×3 (06:16→22:59)
[2022-12-23] MEDS: SODIUM CHLORIDE 0.9% 1,000 ML 100 ML IV (06:46)
--- NOTE | 2022-12-23 06:51 | PC.NURSE ---
Patient resting in bed most of the shift. Has been up independently to bathroom. Did c/o a headache, Ibuprofen and ice pack given to patient. Has been A&O, calm and cooperative.
[2022-12-23 08:00] VITALS: BP 158/100; PULSE 52; RESP 24; TEMP 36.4; O2SAT 96
[2022-12-23] MEDS: ACETAMINOPHEN 325 MG TABLET 650 MG PO ×2 (08:33→23:21)
[2022-12-23] MEDS: ENOXAPARIN 40 MG/0.4 ML SYRINGE SUBCUT (08:33)
--- NOTE | 2022-12-23 09:33 | CM.DANOTE ---
Initial Discharge Assessment Note: Case reviewed, met with patient. Introduced self and role. Payer: Marilyn ESTRELLA and Medicare PCP: Milagro Sin 62 year old obese female admitted with acute bilateral pyelonephritis with failure of outpatient oral abx. PMH includes HTN and RA (Enbrel held). Has headache. She lives in [place] with her spouse Osei and has family that assist as needed. No discharge needs identified. PLAN: Discharge home to care of spouse when medically cleared. GEOVANNA Discharge Planning/Care Management CM Discharge Assessment Start: 12/23/22 09:32 Freq: Status: Active Protocol: Document 12/23/22 09:32 (Rec: 12/23/22 09:33 [id number]) Discharge Planning Assessment Assigned [employer] Opt[employer] Supervisor Niurka Zhu RN/DCP Advance Directives? No History Provided By Patient Prior Living Arrangements House Household Members spouse Type of transporation used prior to Drives own vehicle admit Independent with ADL's Yes Is patient alert and oriented? Yes Caregiver for Another No DME Already Rented / Owned FWW / Walker,Cane Barriers to Discharge No Discharge Plan Home Referrals Initiated None needed Review Status In Process Next Review Type Continued Stay Review
[2022-12-23 12:00] VITALS: BP 154/81; PULSE 47; RESP 17; TEMP 36.4; O2SAT 97
--- NOTE | 2022-12-23 15:03 | P.PN_ITS ---
Subjective Subjective Date Patient Seen: 12/23/22 Interval history: 62 yo female with h/o RA presents to ED due to fevers, vomiting, headache, back and abd pain, admitted for acute pyelo with failure of outpt abx. Pt has been afebrile, states abdomen and back pain is better. Still having headaches which are not typical for her. Denies N/V/blurred vision. Exam Vital Signs (past 8 hours): - 12/23/22 08:00 12/23/22 12:00 Temperature 97.5 F L 97.5 F L Pulse Rate 52 L 47 L Respiratory Rate 24 17 Blood Pressure 158/100 H 154/81 H Pulse Oximetry 96 97 Oxygen Delivery Method Room Air Narrative Exam Narrative: Gen: alert, NAD Abd: soft, mild left flank tenderness Ext: no edema Objective Labs 12/23/22 04:20 12/23/22 04:20 Labs: Laboratory Results - last 24 hr 12/22/22 12/22/22 12/23/22 14:14 14:30 04:20 WBC 4.2 L RBC 4.00 Hgb 11.1 L Hct 32.4 L MCV 81.0 MCH 27.7 MCHC 34.3 RDW 14.4 Plt Count 225 Neut % (Auto) 58.7 Lymph % (Auto) 27.2 [place] % (Auto) 11.3 Eos % (Auto) 2.4 Baso % (Auto) 0.4 Neut # (Auto) 2400 Lymph # (Auto) 1100 [place] # (Auto) 500 Eos # (Auto) 100 Baso # (Auto) 0 Sodium Potassium Chloride Carbon Dioxide BUN Creatinine Estimated GFR BUN/Creatinine Ratio Glucose Calcium Total Bilirubin AST ALT Alkaline Phosphatase Total Protein Albumin Globulin Albumin/Globulin Ratio Procalcitonin 0.32 Urine Color Yellow Urine Appearance Clear Urine pH 6.0 Ur Specific Comfort <=1.005 Urine Protein Negative Urine Glucose (UA) Negative Urine Ketones Negative Urine Occult Blood Trace-intact Urine Nitrate Negative Urine Bilirubin Negative Urine Urobilinogen 0.2 Ur Leukocyte Esterase Trace H Urine RBC 0-1/hpf Urine WBC 5-10/hpf H Ur Squamous Epith Cells None seen Urine Bacteria None seen Ur Culture Indicated? Specimen cultured 12/23/22 04:20 WBC RBC Hgb Hct MCV MCH MCHC RDW Plt Count Neut % (Auto) Lymph % (Auto) [place] % (Auto) Eos % (Auto) Baso % (Auto) Neut # (Auto) Lymph # (Auto) [place] # (Auto) Eos # (Auto) Baso # (Auto) Sodium 137 Potassium 3.6 Chloride 104 Carbon Dioxide 32 BUN 9 Creatinine 0.60 Estimated GFR > 60 BUN/Creatinine Ratio 15.0 Glucose 78 L Calcium 7.8 L Total Bilirubin 0.5 AST 50 H ALT 37 H Alkaline Phosphatase 149 H Total Protein 5.7 L Albumin 2.8 L Globulin 2.9 Albumin/Globulin Ratio 1.0 Procalcitonin Urine Color Urine Appearance Urine pH Ur Specific Comfort Urine Protein Urine Glucose (UA) Urine Ketones Urine Occult Blood Urine Nitrate Urine Bilirubin Urine Urobilinogen Ur Leukocyte Esterase Urine RBC Urine WBC Ur Squamous Epith Cells Urine Bacteria Ur Culture Indicated? [facility] Medical History (Updated 12/22/22 @ 16:55 by Lara Ma RN) Diverticula of colon Rheumatoid arthritis Social History household members: spouse Smoking Status: Never smoker alcohol intake: never Assessment & Plan Assessment & Plan narrative: 1. Acute bilateral pyelonephritis with failure of outpatient oral abx -likely mixed infection -urine cx from ER visit 12/18 pansensitive E.coli but having persistent fever, pain on cephalexin -current blood and urine cx negative so far -Ct 12/18 c/w bilat pyelo, neg for diverticulitis -CBC, procalc nl -treat with Zosyn to coever aerobic and anaerobic bacteria -tylenol/ibu prn -zofran prn -repeat CT wi IV and oral contrast if not clinically responding after 48 h on Zosyn -consider d/c in 1 - 2 days on oral abx with aerobic and anaerobic coverage 2. Acute hypertension -likely pain related, BP still elevated but improving, doubt BP high enough to be causing her headaches 3. Acute headache -don't think hypertensive, cont monitoring -may need further eval with CT, LP if persists 4. RA -hold Enbrel 5. Severe obesity , BMI 40
[2022-12-23 17:00] VITALS: BP 150/80; PULSE 46; RESP 16; TEMP 36.6; O2SAT 96
[2022-12-23 20:00] VITALS: O2SAT 97
[2022-12-23 20:15] VITALS: BP 156/84; PULSE 48; TEMP 35.9; O2SAT 97
[2022-12-24] VITALS: O2SAT 97
[2022-12-24 04:00] VITALS: O2SAT 94
[2022-12-24 04:59] VITALS: BP 142/94; PULSE 60; RESP 18; TEMP 36.1; O2SAT 94
[2022-12-24] MEDS: ACETAMINOPHEN 325 MG TABLET 650 MG PO (06:22)
[2022-12-24] MEDS: IBUPROFEN 600 MG TABLET PO (06:22)
[2022-12-24] MEDS: PIPERACILLIN/TAZO 3.375 GM in SODIUM CHLORIDE 0.9% 100 ML IV (06:23)
--- NOTE | 2022-12-24 07:44 | PM.DS.1 ---
History of Present Illness History of Present Illness Date Patient Seen: 12/24/22 Chief complaint: DR sent for IV anibotics Narrative: Pt is 62 yo female with h/o RA presents to ED due to fevers, vomiting, headache, back and abd pain. Pt was seen in ED on 12/18 for similar complaints and found to have UTI. She was discharged on cephalexin which she has been taking. urine cx pos for frazier-sensitive E.coli. Has persistnet low grade temp, chills, nausea with occ vomiting, left lower abd and flank pain. Also having headaches which are not common for her. Only med is Enbrel which last took 2 weeks ago. In ED, afebrile, initial BP 190/102, repeat BP 160/62 without intervention, HR [address] wi contraast showed mild inflammatory stranding L>R kidneys, mild left side diverticulosis without diverticulitis. She has h/o complicated divertic 3 years ago which required sig resection, bladder patch and prolonged abx. Discharge Providers Provider Date of admission: 12/22/22 14:25 Discharge Date: 12/24/22 Primary care physician: Milagro Sin PA-C Discharge provider: Janessa Peterson MD Summary Hospital Course Hospital Course: 1. Acute bilateral pyelonephritis with failure of outpatient oral abx -likely mixed infection -urine cx from ER visit 12/18 pansensitive E.coli but had persistent fever, pain on cephalexin -Ct 12/18 c/w bilat pyelo, neg for diverticulitis -treated with Zosyn to coever aerobic and anaerobic bacteria until fever cleared -home on 5 additional days of PO Augmentin -repeat CT 12/24/22 for new RLQ pain was normal. 2. Acute hypertension -likely pain related, consider treatment if remains elevated at outpatient followup 3. Acute headache -resolved 4. RA -holding Enbrel 5. Severe obesity , BMI 40 Status at Discharge Cognitive/behavioral status at discharge: at baseline, oriented Functional status at discharge: independent ambulation Overall status at discharge: patient is back to baseline Exam Vital Signs (past 8 hours): - 12/24/22 00:00 12/24/22 04:59 12/24/22 04:00 Temperature 97.0 F L Pulse Rate 60 Respiratory Rate 18 Blood Pressure 142/94 H Pulse Oximetry 97 94 94 Oxygen Delivery Method Room Air Room Air Oxygen Delivery Method Room Air Narrative Exam Narrative: She is complaining of new right lower quadrant pain overnight. CT scan was done that was negative. She is alert and oriented and in no apparent distress Heart is regular rate and rhythm without murmur Lungs are clear to auscultation bilaterally Add soft, bowel sounds positive, mild tenderness in the right lower quadrant, no organomegaly. Extremities no ankle edema Objective Labs 12/23/22 04:20 12/23/22 04:20 [facility] Medical History (Updated 12/22/22 @ 16:55 by Lara Ma RN) Diverticula of colon Rheumatoid arthritis Social History household members: spouse Smoking Status: Never smoker alcohol intake: never Discharge Plan Discharge Plan Patient Disposition: Home Provider Discharge Comment: Follow up with your PCP, PROSPER Sin in 1-2 weeks. Discharge orders & Medications Prescriptions: New amoxicillin-pot clavulanate [Augmentin] 500-125 mg tablet 1 tab PO TID Qty: 15 0RF Continued Enbrel SureClick 50 mg/mL (1 mL) pen injector 1 mg SUBCUT WEEKLY Follow up/Referrals: Milagro Sin PA-C [Primary Care Provider] - Diet/Activity/Treatments Diet: Regular Visit Report/Discharge Packet Instructions: DI for Kidney Infection Stand Alone Forms: Patient Portal/API, Stroke Signs & Symptoms Discharge Data Primary Care Provider: Milagro Sin Discharges patient from system. Discharge Date/Time: 12/24/22 12:50
[2022-12-24 08:00] VITALS: BP 142/77; PULSE 47; RESP 16; TEMP 36.2; O2SAT 96
--- NOTE | 2022-12-24 08:51 | DI.CT.S_ITS ---
PROCEDURE: CT ABDOMEN PELVIS W CON INDICATIONS: RLQ pain TECHNIQUE: After the administration of intravenous contrast, axial sections acquired from the lung bases to the pubic symphysis. Coronal and sagittal reformats were performed. For radiation dose reduction, the following was used: automated exposure control, adjustment of mA and/or kV according to patient size. COMPARISON: [facility], CT, CT ABDOMEN PELVIS W CON, 12/18/2022, 7:34. FINDINGS: Image quality: Excellent. Lung bases: Unremarkable. Heart: No significant findings. ABDOMEN: Liver: Unremarkable. Gallbladder: Surgically absent Biliary ducts: Unremarkable. Pancreas: Unremarkable. Spleen: Unremarkable. Adrenal Glands: Unremarkable. Kidneys and Ureters: Unremarkable. Stomach and Bowel: Stomach, small bowel loops, and colon are unremarkable. Normal appendix. Anastomotic clips within the sigmoid colon. Peritoneum: No abnormal intraperitoneal fluid. No free air. Ventral Wall: No hernias. Abdominal Nodes: No retroperitoneal or mesenteric adenopathy by size criteria. Vessels: Aorta and inferior vena cava are normal in size. PELVIS: Pelvic Organs: Unremarkable. Bladder: Decompressed. Pelvic Nodes: No enlarged lymph nodes. Miscellaneous: No hernias are seen. Bones: Unremarkable. IMPRESSION: 1. No acute process. 2. Normal appendix. Dictated by: Ivette Bruno M.D. on 12/24/2022 at 9:34 Approved by: Ivette Bruno M.D. on 12/24/2022 at 9:35
--- NOTE | 2022-12-24 13:16 | PC.NURSE ---
Discharge Note Patient A&O, VSS, RA, no complaints of pain/discomfort. Patient agreeable to discharge plan. Discharge packet reviewed with patient. Discharge packet reviewed with patient, all questions/concerns addressed. PIV discontinued. Patient able to dress self and pack all belongings. Patient taken down via wheelchair to POV.
--- NOTE | 2022-12-24 14:54 | CM.DPC ---
DCP Continued: FACILITIES ENGINEER reviewed EMR. No needs identified at this time. Per provider, patient will d/c home today. Plan: home with spouse today, transport in POV. CM team will follow as needed. CHRIS Cerda
== END 2022-12-24 12:50 | disposition home or self-care (01) | DRG 690 ==
LOC: ED 14:24 → AC 14:26
PROVIDERS: Admitting Provider Internal Medicine; Emergency Provider Emergency Medicine; PCP Physician Assistant Medical; Referring Provider Emergency Medicine; Visit Provider Internal Medicine
DX: N10 Acute pyelonephritis (principal); Z68.41 Body mass index [BMI] 40.0-44.9, adult; E66.01 Morbid (severe) obesity due to excess calories; I10 Essential (primary) hypertension; R51.9 Headache, unspecified; M06.9 Rheumatoid arthritis, unspecified
CPT/HCPCS: 36415; 74177; 80053; 81001; 83605; 83690; 84145; 85025; 87040; 87086; 96365; 99284; J1650; J2543; Q9967